=== PATIENT | female | born 1975 | race Two or more races ===

== ENCOUNTER → 2019-03-21 | Outpatient (CLI) | payer OTHER | END | disposition home or self-care (01) | LOC: SHCH 10:11 | PROVIDERS: ATTEND Internal Medicine Cardiovascular Disease | DX: I51.7 Cardiomegaly (principal) | CPT/HCPCS: 93306 ==

== ENCOUNTER → 2019-12-25 | Outpatient (CLI) | payer OTHER | END | disposition home or self-care (01) | LOC: RAH 10:49 | PROVIDERS: ATTEND Family Medicine | DX: S83.241A Other tear of medial meniscus, current injury, right knee, initial encounter (principal); M25.561 Pain in right knee; X58.XXXA Exposure to other specified factors, initial encounter; Y93.89 Activity, other specified; Y92.89 Other specified places as the place of occurrence of the external cause; Y99.8 Other external cause status | CPT/HCPCS: 73721 ==

== ENCOUNTER → 2020-07-21 | Outpatient (CLI) | payer OTHER | END | disposition home or self-care (01) | LOC: RAH 09:46 | PROVIDERS: ATTEND Internal Medicine Gastroenterology | DX: R10.11 Right upper quadrant pain (principal) | CPT/HCPCS: 76700; 78227; A9537 ==

== ENCOUNTER → 2022-05-04 | Outpatient (CLI) | payer OTHER | END | disposition home or self-care (01) | LOC: RAH 09:58 | PROVIDERS: ATTEND Family Medicine | DX: K76.0 Fatty (change of) liver, not elsewhere classified (principal); R10.9 Unspecified abdominal pain | CPT/HCPCS: 78227; 76705; A9537 ==

== ENCOUNTER → 2023-11-09 | Outpatient (CLI) | payer OTHER | END | disposition home or self-care (01) | LOC: OIH 10:55 | PROVIDERS: ATTEND Internal Medicine Cardiovascular Disease | DX: Z13.6 Encounter for screening for cardiovascular disorders (principal) | CPT/HCPCS: 75571 ==

== ENCOUNTER → 2023-12-25 | Outpatient (CLI) | payer OTHER | END | disposition home or self-care (01) | LOC: SHCH 14:53 | PROVIDERS: ATTEND Internal Medicine Cardiovascular Disease | DX: I08.3 Combined rheumatic disorders of mitral, aortic and tricuspid valves (principal); E78.5 Hyperlipidemia, unspecified | CPT/HCPCS: 93306 ==